=== PATIENT | female | born 1985 | race American Indian/Alaskan Native ===

== ENCOUNTER 2016-09-05 17:15 | Outpatient (CLI) | payer MEDICAID ==
[2016-09-05 18:52] VITALS: BP 135/81
[2016-09-05] MEDS ORDERED: LACTATED RINGERS 1,000 ML ONE (18:52)
[2016-09-05] MEDS ORDERED: LACTATED RINGERS 500 ML IV ONE (19:10)
[2016-09-05] MEDS ORDERED: ZOFRAN IV ONE (20:04)
[2016-09-05 20:35] LABS: Bilirubin,Urine NEG (Negative); Blood,Urine NEG (Negative); Ketones,Urine 20 mg/dL (Negative); Leukocyte Esterase,Urine NEG (Negative); Mucus,Urine 1+ /HPF; Nitrite,Urine NEG (Negative)
== END 2016-09-05 21:26 | disposition home or self-care (01) ==
LOC: TRG 17:15
PROVIDERS: ATTEND Obstetrics & Gynecology
DX: O47.03 False labor before 37 completed weeks of gestation, third trimester (principal); Z3A.33 33 weeks gestation of pregnancy
CPT/HCPCS: 59025; 81001; 96360; 96361; 96374; J2405; J7120

== ENCOUNTER 2018-01-11 22:17 | Outpatient (CLI) | payer MEDICAID ==
[2018-01-11] MEDS ORDERED: LACTATED RINGERS 1,000 ML ONE (22:35)
[2018-01-11] MEDS ORDERED: LACTATED RINGERS 1,000 ML IV ONE (23:21)
[2018-01-11] MEDS ORDERED: TYLENOL PO ONE (23:22)
[2018-01-12 00:59] LABS: Bilirubin,Urine NEG (Negative); Blood,Urine NEG (Negative); Calcium Oxalate Crystals,Urine 1+; Color,Urine Amber (Yellow); Hyaline Casts,Urine 1 /LPF; Mucus,Urine 3+ /HPF
[2018-01-12 01:10] VITALS: BP 110/50
== END 2018-01-12 01:32 | disposition home or self-care (01) ==
LOC: TRG 22:17
PROVIDERS: ATTEND Obstetrics & Gynecology
DX: O26.893 Other specified pregnancy related conditions, third trimester (principal); O99.333 Smoking (tobacco) complicating pregnancy, third trimester; M54.5 Low back pain; Z3A.33 33 weeks gestation of pregnancy; Z88.1 Allergy status to other antibiotic agents
CPT/HCPCS: 59025; 81001; 96360; J7120

== ENCOUNTER 2018-01-12 01:46 | Emergency (ER) | payer MEDICAID ==
[2018-01-12 02:07] VITALS: BP 115/58
== END 2018-01-12 02:40 | disposition left against medical advice (07) ==
LOC: ED 01:46
DX: O26.891 Other specified pregnancy related conditions, first trimester (principal); R22.0 Localized swelling, mass and lump, head; Z53.21 Procedure and treatment not carried out due to patient leaving prior to being seen by health care provider

== ENCOUNTER 2019-02-01 18:29 | Emergency (ER) | payer MEDICAID ==
--- NOTE | 2019-02-01 18:45 | Event Note ---
ED Screening Note ED Screening Note: edc 05/06 co 04/[address] Baker 142/83 borderline pre eclampsia in the past pt states she has been swelling this preg but bp ok rx pmh none psh none no head trauma no sinus symptom entire head hurts vision is blurred pos n/v This initial assessment/diagnostic orders/clinical plan/treatment(s) is/are subject to change based on patients health status, clinical progression and re- assessment by fellow clinical providers in the ED. Further treatment and workup at subsequent clinical providers discretion. Patient/guardian urged not to elope from the ED as their condition may be serious if not clinically assessed and managed. Initial orders include: concern for preeclampsia
[2019-02-01] MEDS ORDERED: REGLAN IV ONE (19:05)
[2019-02-01] MEDS ORDERED: NACL 0.9% 1000 ML 1,000 ML IV ONE ×2 (19:05)
[2019-02-01 19:19] LABS: Hematocrit 34.6 % (30.3-42.9); Hemoglobin 11.2 gm/dl (10.1-14.3); Mean Corpuscular HGB Conc 32 % (30-34); Mean Corpuscular Volume 86 fl (79-97); Platelet Count 386 K/mm3 (140-440); Red Blood Count 4.04 M/mm3 (3.65-5.03); Red Cell Distribution Width 14.5 % (13.2-15.2)
[2019-02-01 19:45] LABS: Alanine Aminotransferase 9 units/L (7-56); Albumin 3.4 g/dL (3.9-5); BUN/Creatinine Ratio 20; Blood Urea Nitrogen 8 mg/dL (7-17); Calcium 9.5 mg/dL (8.4-10.2); Hemolysis Index 33; Uric Acid 3.4 mg/dL (3.5-7.6)
[2019-02-01 20:31] LABS: Bacteria,Urine 2+ /HPF (Negative); Bilirubin,Urine NEG (Negative); Blood,Urine NEG (Negative); Color,Urine Yellow (Yellow); Mucus,Urine 1+ /HPF; Protein,Urine <15 mg/dL mg/dL (Negative)
--- NOTE | 2019-02-01 20:55 | Emergency Department Report ---
ED General Adult HPI - General Chief complaint: Headache Stated complaint: HEADAHCE/DIZZINESS/BLURRED VISION Time Seen by Provider: 02/01/19 18:42 Source: patient Mode of arrival: Ambulatory Limitations: No Limitations - History of Present Illness Initial comments: Patient is a 33-year-old female who is presenting with a headache has been present for the last 2 days. Patient states is 9 out of 10 in severity. Headache is throbbing and is accompanied with some dizziness which is worse with standing up. Patient also has some mild nausea. Patient states she's has been out in the heat and profusely sweating last several days. Neri nt states that she stood in front of a fan today but was still very diaphoretic. Patient states she has been drinking plenty of fluids. Patient is approximately 27 weeks . She denies any vaginal bleeding dysuria or diarrhea or abdominal crampiness at this time. Patient also states that she has a small lump at the top of the head that is mildly tender to palpation for the past 3 weeks. Patient states that she is very sure this is being off for 3 weeks tissue razor on hair daily and has never noticed a lump in this area. - Related Data Previous Rx's Medication Instructions Recorded Last Taken Type Acetaminophen [Acetaminophen TAB] 650 mg PO Q4H PRN #30 tablet 07/21/14 Unknown Rx Clindamycin [Cleocin] 300 mg PO Q8H #21 cap 07/21/14 Unknown Rx HYDROcodone/APAP 5-325 [Paia 1 each PO Q6H PRN #10 tablet 07/21/14 Unknown Rx 5-325 mg TAB] Clindamycin [Clindamycin CAP] 300 mg PO Q8H #21 cap 02/01/19 Unknown Rx Allergies Allergy/AdvReac Type Severity Reaction Status Date / Time amoxicillin Allergy Itching Verified 07/19/14 19:56 ED Review of Systems ROS: Stated complaint: HEADAHCE/DIZZINESS/BLURRED VISION Other details as noted in HPI Comment: All other systems reviewed and negative ED Past Medical Hx - Past Medical History Previous Medical History?: No Hx Hypertension: Yes (previous ) Hx Congestive Heart Failure: No Hx Diabetes: No Hx Deep Vein Thrombosis: No Hx Renal Disease: No Hx Sickle Cell Disease: No Hx Seizures: No Hx Asthma: No Hx COPD: No Hx HIV: No - Surgical History Past Surgical History?: No - Social History Smoking Status: Never Smoker Substance Use Type: None - Medications Home Medications: Home Medications Medication Instructions Recorded Confirmed Last Taken Type Acetaminophen [Acetaminophen TAB] 650 mg PO Q4H PRN #30 tablet 07/21/14 Unknown Rx Clindamycin [Cleocin] 300 mg PO Q8H #21 cap 07/21/14 Unknown Rx HYDROcodone/APAP 5-325 [Paia 1 each PO Q6H PRN #10 tablet 07/21/14 Unknown Rx 5-325 mg TAB] Clindamycin [Clindamycin CAP] 300 mg PO Q8H #21 cap 02/01/19 Unknown Rx ED Physical Exam - General Limitations: No Limitations General appearance: alert, in no apparent distress - Head Head exam: Present: atraumatic, normocephalic, other (shunt with a very small pea-sized nodule under the skin at the very top of the head. The overlying skin is not erythematous. There is no fluctuance. This is most consistent with a lymph node or a small cyst.) - Eye Eye exam: Present: normal appearance, PERRL, EOMI - ENT ENT exam: Present: mucous membranes moist - Neck Neck exam: Present: normal inspection - Respiratory Respiratory exam: Present: normal lung sounds bilaterally. Absent: respiratory distress, wheezes, rales, rhonchi - Cardiovascular Cardiovascular Exam: Present: regular rate, normal rhythm. Absent: systolic murmur, diastolic murmur, rubs, gallop - GI/Abdominal GI/Abdominal exam: Present: soft, normal bowel sounds. Absent: distended, tenderness, guarding, rebound - Extremities Exam Extremities exam: Present: normal inspection - Back Exam Back exam: Present: normal inspection - Neurological Exam Neurological exam: Present: alert, oriented X3 - Psychiatric Psychiatric exam: Present: normal affect, normal mood - Skin Skin exam: Present: warm, dry, intact, normal color. Absent: rash ED Course Vital Signs 02/01/19 02/01/19 18:41 18:44 Temperature 97.6 F Pulse Rate 90 Respiratory 18 Rate Blood Pressure 135/76 Blood Pressure 142/83 [Left] Blood Pressure 137/88 [Right] O2 Sat by Pulse 99 Oximetry ED Medical Decision Making - Lab Data Result diagrams: 02/01/19 19:07 02/01/19 19:07 Lab Results 02/01/19 02/01/19 02/01/19 Range/Units 19:07 19:07 20:04 WBC 13.8 H (4.5-11.0) K/mm3 RBC 4.04 (3.65-5.03) M/mm3 Hgb 11.2 (10.1-14.3) gm/dl Hct 34.6 (30.3-42.9) % MCV 86 (79-97) fl MCH 28 (28-32) pg MCHC 32 (30-34) % RDW 14.5 (13.2-15.2) % Plt Count 386 (140-440) K/mm3 Sodium 135 L (137-145) mmol/L Potassium 4.1 (3.6-5.0) mmol/L Chloride 102.2 (98-107) mmol/L Carbon Dioxide 19 L (22-30) mmol/L Anion Gap 18 mmol/L BUN 8 (7-17) mg/dL Creatinine 0.4 L (0.7-1.2) mg/dL Estimated GFR > 60 ml/min BUN/Creatinine Ratio 20 % Glucose 80 (65-100) mg/dL Uric Acid 3.4 L (3.5-7.6) mg/dL Calcium 9.5 (8.4-10.2) mg/dL Total Bilirubin 0.20 (0.1-1.2) mg/dL AST 13 (5-40) units/L ALT 9 (7-56) units/L Alkaline Phosphatase 85 (35-129) units/L Total Protein 7.4 (6.3-8.2) g/dL Albumin 3.4 L (3.9-5) g/dL Albumin/Globulin Ratio 0.9 % Urine Color Yellow (Yellow) Urine Turbidity Clear (Clear) Urine pH 6.0 (5.0-7.0) Ur Specific Fre[place] 1.020 (1.003-1.030) Urine Protein <15 mg/dl (Negative) mg/dL Urine Glucose (UA) Neg (Negative) mg/dL Urine Ketones 20 (Negative) mg/dL Urine Blood Neg (Negative) Urine Nitrite Neg (Negative) Urine Bilirubin Neg (Negative) Urine Urobilinogen 4.0 (<2.0) mg/dL Ur Leukocyte Esterase Tr (Negative) Urine WBC (Auto) 2.0 (0.0-6.0) /HPF Urine RBC (Auto) 1.0 (0.0-6.0) /HPF U Epithel Cells (Auto) 1.0 (0-13.0) /HPF Urine Bacteria (Auto) 2+ (Negative) /HPF Urine Mucus 1+ /HPF - Medical Decision Making Patient states she is most worried about preeclampsia since she has had preeclampsia with previous pregnancies. Hi his blood pressure in the emergency department was 142/83 however repeat was 135/76. Patient's urinalysis was evaluated and she has no proteins. Patient's has been ruled out for preeclampsia at this time. Patient was hydrated state she feels much improved. Headache is resolved. Patient's headache likely secondary to hypovolemia. Regarding the patient's small nodule on the top of her head this may be an infected lymph node. Patient started on clindamycin and will have follow-up with her primary care physician. Patient discharged home. Critical care attestation.: If time is entered above; I have spent that time in minutes in the direct care of this critically ill patient, excluding procedure time. ED Disposition Clinical Impression: Mild dehydration, Lymphadenitis Headache Qualifiers: Headache type: tension-type Headache chronicity pattern: acute headache Intractability: not intractable Qualified Code(s): G44.209 - Tension-type headache, unspecified, not intractable Disposition: DC-01 TO HOME OR SELFCARE Is pt being admited?: No Does the pt Need Aspirin: No Condition: Stable Instructions: (ED), Dehydration (ED), Lymphadenopathy (ED) Referrals: PRIMARY CARE, [Primary Care Provider] - 3-5 Days Time of Disposition: 20:56
[2019-02-01 21:20] VITALS: BP 136/84
== END 2019-02-01 21:15 | disposition home or self-care (01) ==
LOC: ED 18:29
DX: O26.892 Other specified pregnancy related conditions, second trimester (principal); E86.0 Dehydration; I88.9 Nonspecific lymphadenitis, unspecified; R51 Headache; O16.2 Unspecified maternal hypertension, second trimester; Z3A.27 27 weeks gestation of pregnancy; Z79.899 Other long term (current) drug therapy; Z88.1 Allergy status to other antibiotic agents
CPT/HCPCS: 36415; 80053; 81001; 84550; 85027; 96361; 96374; 99283; J2765; J7030

== ENCOUNTER 2019-04-11 22:51 | Emergency (ER) | payer MEDICAID ==
[2019-04-11 19:37] LABS: Bilirubin,Urine Negative (Negative); Blood,Urine Negative (Negative); Color,Urine Yellow (Yellow); Protein,Urine <15 mg/dL mg/dL (Negative); Urobilinogen,Urine < 2.0 mg/dL (<2.0)
[2019-04-11 19:38] LABS: Bacteria,Urine 1+ /HPF (Negative)
[2019-04-11 19:51] LABS: Mucus,Urine 1+ /HPF; Sperm,Urine FEW /HPF (NP)
[2019-04-11 19:52] LABS: Amphetamine Screen,Urine PRESUMPTIVE NEGATIVE; Benzodiazepines Screen,Urine PRESUMPTIVE NEGATIVE; Cocaine Screen,Urine PRESUMPTIVE NEGATIVE; Methadone Screen,Urine PRESUMPTIVE NEGATIVE; Opiate Screen,Urine PRESUMPTIVE NEGATIVE
--- NOTE | 2019-04-11 20:27 | Ultrasound Report ---
CLINICAL DATA: See reason for exam. TECHNICAL DATA: Document breath, motion, gestational age, tone, and fluid. FINDINGS: respiration, tone, and motion are well visualized and normal. Amniotic fluid volume is normal. Biophysical profile score is 8/8. The lower uterine segment is evaluated and there is no evidence of placenta previa. heart rate is Heart Rate 131. IMPRESSION: The biophysical profile score is 8/8. Signer Name: Artemio Bolton MD Signed: 04/11/2019 8:23 PM Workstation Name: [id number]
--- NOTE | 2019-04-11 20:30 | Ultrasound Report ---
ULTRASOUND OBSTETRIC INDICATION / CLINICAL INFORMATION: S/P fall. Clinical Gestational Age (GA): TECHNIQUE: Transabdominal. COMPARISON: None available. FINDINGS: There is a single intrauterine . Position: breech. Cervix: closed. Length in cm (3.8 cm Placenta: Fundal and free of the os. Amniotic Fluid Volume: normal Amniotic Fluid Index (10.9 in cm (if calculated): . Maternal Adnexa: No significant abnormality. IMPRESSION: 1. Single, living intrauterine , breech presentation Signer Name: Artemio Bolton MD Signed: 04/11/2019 8:26 PM Workstation Name: [id number]
[2019-04-11 20:55] LABS: Cannabinoid Screen,Urine PRESUMPTIVE POSITIVE
[2019-04-11 22:09] LABS: Hematocrit 32.8 % (30.3-42.9); Hemoglobin 10.7 gm/dl (10.1-14.3); Mean Corpuscular HGB Conc 33 % (30-34); Mean Corpuscular Volume 86 fl (79-97); Platelet Count 344 K/mm3 (140-440); Red Blood Count 3.83 M/mm3 (3.65-5.03); Red Cell Distribution Width 14.4 % (13.2-15.2)
[~2019-04-11 22:51] MED LIST: ACETAMINOPHEN 325 MG TAB PO ONE; LACTATED RINGERS 1,000 ML IV SCH
[2019-04-11 23:29] VITALS: BP 112/72
[2019-04-11] MEDS ORDERED: ONDANSETRON 4 MG/2 ML INJ IM ONE (23:42)
[2019-04-11] MEDS ORDERED: MORPHINE 4 MG/1 ML INJ IM ONE (23:42)
--- NOTE | 2019-04-11 23:47 | Emergency Department Report ---
ED Fall HPI - General Chief Complaint: Back Pain/Injury Time Seen by Provider: 04/11/19 23:31 Source: patient Mode of arrival: Ambulatory - History of Present Illness Initial Comments: Patient is 34 years old female at 36 weeks . Patient brought to the emergency room from labor and delivery for evaluation after a fall that happened this evening. Patient stated that she was getting out of BATHTUB when she slipped and fell landed on her back. Patient stated that she is complaining of lower back pain and left hip pain. Patient denied any head injury, loss of consciousness, headache, neck injury or any other extremity injuries. Patient has been cleared by labor and delivery after adequate monitoring. MD Complaint: fall -: This evening Fall From: standing Fall Witnessed: yes, by family Place Fall Occurred: home Loss of Consciousness: none Prolonged Down Time?: no Symptoms Prior to Fall: none Location: back, pelvis Severity: moderate Severity scale (0 -10): 5 Context: tripped/slipped Associated Symptoms: denies - Related Data Previous Rx's Medication Instructions Recorded Last Taken Type Acetaminophen [Acetaminophen TAB] 650 mg PO Q4H PRN #30 tablet 07/21/14 Unknown Rx Clindamycin [Cleocin] 300 mg PO Q8H #21 cap 07/21/14 Unknown Rx HYDROcodone/APAP 5-325 [Barnwell 1 each PO Q6H PRN #10 tablet 07/21/14 Unknown Rx 5-325 mg TAB] Clindamycin [Clindamycin CAP] 300 mg PO Q8H #21 cap 02/01/19 Unknown Rx Allergies Allergy/AdvReac Type Severity Reaction Status Date / Time amoxicillin AdvReac Severe Itching Verified 04/11/19 18:51 ED Review of Systems ROS: Stated complaint: Other details as noted in HPI Comment: All other systems reviewed and negative Constitutional: denies: chills, fever Respiratory: denies: cough, shortness of breath Cardiovascular: denies: chest pain Gastrointestinal: denies: abdominal pain, nausea Musculoskeletal: back pain Neurological: denies: headache, weakness, numbness, paresthesias, confusion ED Past Medical Hx - Past Medical History Previous Medical History?: No Hx Hypertension: No Hx Congestive Heart Failure: No Hx Diabetes: No Hx Deep Vein Thrombosis: No Hx Renal Disease: No Hx Sickle Cell Disease: No Hx Seizures: No Hx Asthma: No Hx COPD: No Hx HIV: No - Surgical History Past Surgical History?: No - Social History Smoking Status: Never Smoker Substance Use Type: None - Medications Home Medications: Home Medications Medication Instructions Recorded Confirmed Last Taken Type Acetaminophen [Acetaminophen TAB] 650 mg PO Q4H PRN #30 tablet 07/21/14 Unknown Rx Clindamycin [Cleocin] 300 mg PO Q8H #21 cap 07/21/14 Unknown Rx HYDROcodone/APAP 5-325 [Barnwell 1 each PO Q6H PRN #10 tablet 07/21/14 Unknown Rx 5-325 mg TAB] Clindamycin [Clindamycin CAP] 300 mg PO Q8H #21 cap 02/01/19 Unknown Rx ED Physical Exam - General Limitations: No Limitations General appearance: alert, in no apparent distress - Head Head exam: Present: atraumatic, normocephalic, normal inspection - Eye Eye exam: Present: normal appearance - ENT ENT exam: Present: normal exam, normal orophraynx, mucous membranes moist - Neck Neck exam: Present: normal inspection, full ROM. Absent: tenderness, meningismus, lymphadenopathy, thyromegaly - Respiratory Respiratory exam: Present: normal lung sounds bilaterally - Cardiovascular Cardiovascular Exam: Present: regular rate, normal rhythm, normal heart sounds - GI/Abdominal GI/Abdominal exam: Present: soft, normal bowel sounds, organomegaly (GRAVID UTERUS). Absent: distended, tenderness, guarding, rebound, rigid, mass, bruit, pulsatile mass, hernia - Extremities Exam Extremities exam: Present: normal inspection, full ROM, normal capillary refill. Absent: tenderness, pedal edema, joint swelling, calf tenderness - Back Exam Back exam: Present: normal inspection, full ROM, muscle spasm. Absent: CVA tenderness (R), CVA tenderness (L), paraspinal tenderness, vertebral tenderness, rash noted - Neurological Exam Neurological exam: Present: alert, oriented X3, CN II-XII intact, normal gait, reflexes normal - Psychiatric Psychiatric exam: Present: normal mood - Skin Skin exam: Present: warm, intact, normal color ED Course Vital Signs 04/11/19 04/11/19 04/11/19 18:54 18:55 23:22 Temperature 97.5 F L 97.9 F Pulse Rate 93 H 93 H 95 H Respiratory 20 18 Rate Blood Pressure 129/81 112/72 Blood Pressure 129/81 [Left] O2 Sat by Pulse 100 97 Oximetry ED Medical Decision Making - Lab Data Result diagrams: 04/11/19 19:38 - Radiology Data Radiology results: image reviewed - Medical Decision Making Patient is 34 years old female at 36 weeks . Patient brought to the emergency room from labor and delivery for evaluation after a fall that happened this evening. Patient stated that she was getting out of BATHTUB when she slipped and fell landed on her back. Patient stated that she is complaining of lower back pain and left hip pain. Patient denied any head injury, loss of consciousness, headache, neck injury or any other extremity injuries. Patient has been cleared by labor and delivery after adequate monitoring. Patient received morphine and stated that she is feeling better. X-ray of the lumbosacral spine is negative for acute finding. Left hip x-ray is unremarkable. Patient still denying any vaginal bleeding or abdominal pain. Patient advised to follow-up with her OB doctor in the next 2-3 days and to attend to the ER if symptoms are not improved. Patient given a prescription for Tylenol 3 and Zofran. Critical care attestation.: If time is entered above; I have spent that time in minutes in the direct care of this critically ill patient, excluding procedure time. ED Disposition Clinical Impression: Back pain Disposition: DC-01 TO HOME OR SELFCARE Is pt being admited?: No Condition: Stable Instructions: Acute Low Back Pain (ED) Referrals: IRENA MELTON MD [Primary Care Provider] - 7 Days
[2019-04-11] MEDS ORDERED: MORPHINE 4 MG/1 ML INJ ONE (23:57)
[2019-04-11] MEDS ORDERED: ONDANSETRON 4 MG/2 ML INJ ONE (23:57)
--- NOTE | 2019-04-12 02:50 | XRay Report ---
LEFT HIP 2 VIEWS 0026 INDICATION: LEFT HIP PAIN, fell, left hip injury, prior history of sciatica and low back/left hip emmanuel n, 36 weeks COMPARISON: None available. FINDINGS: The patient's abdomen and upper pelvis were shielded. No fractures or dislocations are seen . Signer Name: Neal Peter MD Signed: 04/12/2019 2:46 AM Workstation Name: [id number]
--- NOTE | 2019-04-12 02:51 | XRay Report ---
LUMBAR SPINE ONE VIEW 0015 INDICATION: BACK INJURY, fall, 36 weeks COMPARISON: None available. FINDINGS: Only a single lateral view was obtained due to the patient's . Fetus is partially visualized. Minimal degenerative changes are seen in the lower thoracic and upper lumbar region. Disc spaces are maintained. No fractures or subluxations are noted. Signer Name: Neal Peter MD Signed: 04/12/2019 2:47 AM Workstation Name: [id number]
== END 2019-04-12 01:02 | disposition home or self-care (01) ==
LOC: TRG 22:51 → ED 22:51 → TRG 22:51 → ED 22:51 → EDSTATUS 22:55 → ED 04-12 01:02
DX: O9A.213 Injury, poisoning and certain other consequences of external causes complicating pregnancy, third trimester (principal); M54.5 Low back pain; M25.552 Pain in left hip; Z3A.36 36 weeks gestation of pregnancy; W18.30XA Fall on same level, unspecified, initial encounter; Y93.89 Activity, other specified; Y92.89 Other specified places as the place of occurrence of the external cause; Y99.8 Other external cause status
CPT/HCPCS: 36415; 59025; 72020; 73502; 76815; 76819; 80307; 81001; 85027; 86850; 86900; 86901; 96372; 99284; J2270; J2405

== ENCOUNTER 2019-04-25 20:04 | Inpatient (IN) | payer MEDICAID ==
[2019-04-25] MEDS ORDERED: ZOLPIDEM 5 MG TAB PO PRN (23:26)
[2019-04-25] MEDS ORDERED: LACTATED RINGERS 1,000 ML IV SCH (23:45)
--- NOTE | 2019-04-26 00:57 | Ultrasound Report ---
ULTRASOUND OBSTETRIC LIMITED INDICATION / CLINICAL INFORMATION: PRESENTATION. TECHNIQUE: Transabdominal ultrasound imaging. COMPARISON: 04/11/2019 FINDINGS: HEART RATE (beats per minute): 130 AMNIOTIC FLUID INDEX (cm) = not measured PRESENTATION: Breech. ADDITIONAL FINDINGS: None. IMPRESSION: Single viable IUP in a breech presentation. Signer Name: Ariadna Osman MD Signed: 04/26/2019 12:52 AM Workstation Name: [email or web address]
[2019-04-26] MEDS ORDERED: BUTORPHANOL 2 MG/1 ML INJ IV PRN (08:45)
[2019-04-26] MEDS ORDERED: ONDANSETRON 4 MG/2 ML INJ IV PRN ×3 (08:46→13:45)
[2019-04-26] MEDS ORDERED: LACTATED RINGERS 1,000 ML IV SCH ×2 (09:00→10:00)
--- NOTE | 2019-04-26 09:07 | History and Physical Report ---
History of Present Illness Date of examination: 04/26/19 Date of admission: 04/25/19 23:25 Chief complaint: Contractions History of present illness: PT is a at 38.4 weeks based on an EDC given to her at a mobile U/S unit in the first trimester. PT only had care in the first trimester and none since due to insurance issues. PT here with ctxs since last night. Denies ROM. No VB. Good FM. U/S overnight confirmed that fetus is breech. PT notes that she signed sterilization papers early in the (still trying to obtain records). PT has taken PNVs. PT denies any other issues during the . PT notes h/o HTN but no meds needed. Past History Past Medical History: hypertension Past Surgical History: no surgical history Social history: other (only first trimester care due to insurance issues.) - Obstetrical History Expected Date of Delivery: 05/06/19 Actual Gestation: 38 Week(s) 4 Day(s) : 6 Para: 5 Hx # Term Pregnancies: 5 Number of Living Children: 5 Medications and Allergies Allergies Allergy/AdvReac Type Severity Reaction Status Date / Time amoxicillin AdvReac Severe Itching Verified 04/11/19 18:51 Home Medications Medication Instructions Recorded Confirmed Last Taken Type Acetaminophen [Acetaminophen TAB] 650 mg PO Q4H PRN #30 tablet 07/21/14 04/26/19 Unknown Rx HYDROcodone/APAP 5-325 [Roann 1 each PO Q6H PRN #10 tablet 07/21/14 04/26/19 Unknown Rx 5-325 mg TAB] Acetaminophen/Codeine [Tylenol 1 tab PO Q6H PRN #14 tab 04/12/19 04/26/19 Unk nown Rx /Codeine # 3 tab] Ondansetron [Zofran Odt] 4 mg PO Q8HR PRN #14 tab.rapdis 04/12/19 04/26/19 Unknown Rx Active Meds: Active Medications Butorphanol Tartrate (Stadol) 2 mg IV Q2H PRN PRN Reason: Labor Pain Last Admin: 04/26/19 08:59 Dose: 2 mg Documented by: Lactated Ringer's (Lactated Ringers) 1,000 mls @ 125 mls/hr IV DIRECT DEBBY Clindamycin HCl (Cleocin 900 Mg/50 Ml) 900 mg in 50 mls @ 100 mls/hr IV Q8H DEBBY; Protocol Ondansetron HCl (Zofran) 4 mg IV Q8H PRN PRN Reason: Nausea And Vomiting Last Admin: 04/26/19 08:59 Dose: 4 mg Documented by: Zolpidem Tartrate (Ambien) 10 mg PO QHS PRN PRN Reason: Sleep Last Admin: 04/26/19 00:19 Dose: 10 mg Documented by: Review of Systems All systems: negative (WNL excepet for HPI) - Vital Signs Vital signs: Vital Signs Temp 97.5 F L 04/25/19 20:57 Temp Pulse Resp BP Pulse Ox 97.9 F 89 19 125/75 04/26/19 00:03 04/26/19 07:52 04/26/19 00:03 04/26/19 07:52 - Physical Exam Breasts: Positive: deferred Abdomen: Positive: normal appearance (Fundal height 38cm), soft. Negative: distention, tenderness Vulva: both: normal Vagina: Positive: normal moisture. Negative: discharge Uterus: Positive: normal size Adnexa: both: normal - Obstetrical FHR: category 1 (130s, reactive, mod LTV, no decels.) Cervical Dilatation: 5 Cervical Effacement Percentage: 80 station: hi Uterine Contraction Frequency (min): q 2-3 min Uterine Contraction Pattern: Regular Uterine Contraction Intensity: Moderate Results All other labs normal. Ultrasound: pending (awaiting dating U/S to confirm her dates that she verbally gave us. ) Assessment and Plan at 38.4 weeks breech and in early labor. PT consented for LTCS. Risks, benefits and alternatives d/w pt. All questions answered. Will see if sterilization papers were signed in the appropriate window of time. IF so, she was consented for that as well. If not, pt agrees to get it done another time.
[2019-04-26 09:31] LABS: Basophils # (Auto) 0.1 K/mm3 (0.0-0.1); Basophils % (Auto) 1.2 % (0.0-1.8); Eosinophils # (Auto) 0.1 K/mm3 (0.0-0.4); Eosinophils % (Auto) 0.4 % (0.0-4.3); Hematocrit 31.1 % (30.3-42.9); Hemoglobin 10.5 gm/dl (10.1-14.3); Lymphocytes # (Auto) 3.4 K/mm3 (1.2-5.4); Lymphocytes % (Auto) 27.6 % (13.4-35.0); Mean Corpuscular HGB Conc 34 % (30-34); Mean Corpuscular Volume 84 fl (79-97); Monocytes % (Auto) 8.2 % (0.0-7.3); Platelet Count 313 K/mm3 (140-440); Red Blood Count 3.73 M/mm3 (3.65-5.03); Red Cell Distribution Width 14.1 % (13.2-15.2)
[2019-04-26] MEDS ORDERED: OXYTOCIN 20 UNIT/1000ML DRIP 20,000 MILLIUNITS/1,000 ML BAG IV ONE ×2 (09:32→17:31)
[2019-04-26] MEDS ORDERED: METOCLOPRAMIDE 10 MG/2 ML INJ ONE (09:33)
[2019-04-26] MEDS ORDERED: BICITRA ORAL LIQD 30ML ONE (09:33)
[2019-04-26] MEDS ORDERED: FAMOTIDINE 20 MG/2 ML INJ IV ONE (09:33)
[2019-04-26] MEDS ORDERED: BICITRA ORAL LIQD 30ML PO ONE (10:00)
[2019-04-26] MEDS ORDERED: FAMOTIDINE 20 MG/2 ML INJ IV NR (10:00)
[2019-04-26] MEDS ORDERED: METOCLOPRAMIDE 10 MG/2 ML INJ IV NR (10:00)
[2019-04-26 10:28] LABS: Bacteria,Urine 1+ /HPF (Negative); Bilirubin,Urine NEG (Negative); Blood,Urine NEG (Negative); Color,Urine Yellow (Yellow); Mucus,Urine 2+ /HPF; Protein,Urine <15 mg/dL mg/dL (Negative)
[2019-04-26] MEDS ORDERED: GENTAMICIN 500 MG in SODIUM CHLORIDE 0.9% 100 ML IV NR (10:30)
[2019-04-26 10:32] LABS: Amphetamine Screen,Urine PRESUMPTIVE NEGATIVE; Benzodiazepines Screen,Urine PRESUMPTIVE NEGATIVE; Cocaine Screen,Urine PRESUMPTIVE NEGATIVE; Methadone Screen,Urine PRESUMPTIVE NEGATIVE; Opiate Screen,Urine PRESUMPTIVE NEGATIVE
[2019-04-26 10:46] LABS: Cannabinoid Screen,Urine PRESUMPTIVE POSITIVE
--- NOTE | 2019-04-26 11:44 | Anesthesia Consultation ---
Anesthesia Consult and Med Hx Date of service: 04/26/19 - Airway Anesthetic Teeth Evaluation: Good ROM Head & Neck: Adequate Mental/Hyoid Distance: Adequate Mallampati Class: Class II Intubation Access Assessment: Good - Pulmonary Exam CTA: Yes - Cardiac Exam Cardiac Exam: RRR - Pre-Operative Health Status ASA Pre-Surgery Classification: ASA2 Proposed Anesthetic Plan: Spinal - Pulmonary Hx Asthma: No COPD: No Hx Pneumonia: No - Cardiovascular System Hx Hypertension: Yes - Central Nervous System Hx Seizures: No Hx Psychiatric Problems: No - Endocrine Hx Renal Disease: No Hx End Stage Renal Disease: No Hx Hypothyroidism: No Hx Hyperthyroidism: No - Hematic Hx Anemia: Yes Hx Sickle Cell Disease: No - Other Systems Hx Alcohol Use: Yes Hx Cancer: No
[2019-04-26] MEDS ORDERED: PROMETHAZINE 25 MG RECT SUPP PR PRN (11:45)
[2019-04-26] MEDS ORDERED: NALOXONE 0.4 MG/1 ML INJ IV PRN ×3 (11:45→21:09)
[2019-04-26] MEDS ORDERED: HYDROmorphone 1 MG/1 ML INJ IV PRN ×2 (11:45)
[2019-04-26] MEDS ORDERED: PROMETHAZINE 25 MG TAB PO PRN (11:45)
--- NOTE | 2019-04-26 11:57 | Ultrasound Report ---
ULTRASOUND OBSTETRIC Indication: no care Findings: There is a single intrauterine . BPD = 9 cm = 36 weeks, 4 day(s). Head circumference = 33.6 cm = 38 weeks, 3 day(s). Abdominal circumference = 34.2 cm = 38 weeks, 0 day(s). Femur length = 7.6 cm = 38 weeks, 5 day(s). Overall estimated sonographic age = 38 weeks, 0 day(s). heart rate is 138 beats per minute. Estimated weight is 3391 grams position is breech. Cervix is not well visualized Placenta is fundal and grade 2 . Amniotic fluid volume 7 which is at the lower end of normal. The cord insertion is not well seen. The intracranial structures are not well evaluated. The fe ronaldo stomach, kidneys, bladder, diaphragm, four-chamber view of the heart are unremarkable. Three-vess el cord is identified. Impression: 1. Single living intrauterine with estimated sonographic age of 38 weeks, 0 day(s). 2. The fetus is in a breech presentation. Amniotic fluid index is 7 which is at the lower end of norm al. Cord insertion and intracranial structures are not well evaluated. Signer Name: Chris Webber MD Signed: 04/26/2019 11:52 AM Workstation Name: [id number]
[2019-04-26] MEDS ORDERED: fentaNYL-BUPIV 2 MCG/ML-0.125% 200 MCG/100 ML BAG EPIDURAL SCH (12:00)
--- NOTE | 2019-04-26 12:07 | Anesthesia Day of Surgery ---
Anesthesia Day of Surgery - Day of Surgery Patient Examined: Yes Patient H&P Reviewed: Yes Patient is NPO: Yes
[2019-04-26] MEDS ORDERED: WATER FOR IRRIG STERILE 1,500 ML BOTTLE IR ONE (12:30)
[2019-04-26] MEDS ORDERED: SODIUM CHLORIDE 0.9% IRR 1,500 ML BOTTLE IR ONE (12:32)
[2019-04-26] MEDS ORDERED: diphenhydrAMINE 50 MG/ML VIAL ONE ×2 (12:55→13:34)
[2019-04-26] MEDS ORDERED: KETOROLAC 30 MG/1 ML INJ ONE (12:55)
[2019-04-26] MEDS ORDERED: ONDANSETRON 4 MG/2 ML INJ ONE (13:30)
[2019-04-26] MEDS ORDERED: HYDROmorphone 1 MG/1 ML INJ ONE (13:33)
[2019-04-26] MEDS ORDERED: DEXMEDETOMIDINE 200 MCG/2 ML VIAL IV ONE (13:34)
[2019-04-26] MEDS ORDERED: LANOLIN/ZINC/DIMETHICONE (LANSINOH) 7 GM TP PRN (13:41)
[2019-04-26] MEDS ORDERED: WITCH HAZEL/ GLYCERIN PAD TP PRN (13:41)
[2019-04-26] MEDS ORDERED: SIMETHICONE 80 MG CHEW TAB PO PRN (13:45)
[2019-04-26] MEDS ORDERED: MAGNESIUM HYDROXIDE (MOM) ORAL LIQD UDC PO PRN (13:45)
[2019-04-26] MEDS ORDERED: HYDROCORTISONE 25 MG RECTAL SUPP PR PRN (13:45)
[2019-04-26] MEDS ORDERED: SENNOSIDES 8.6 MG TAB PO PRN (13:45)
[2019-04-26] MEDS ORDERED: OXYTOCIN 20 UNIT/1000ML DRIP 20 UNITS/1,000 ML BAG IV SCH (14:00)
[2019-04-26] MEDS ORDERED: D5W/LACTATED RINGERS 1,000 ML IV SCH (14:00)
[2019-04-26] MEDS: KETOROLAC 30 MG/1 ML INJ IV PRN ×2 (16:51→23:00)
[2019-04-26] MEDS ORDERED: miSOPROStol 100 MCG TAB ONE ×3 (17:38→18:06)
[2019-04-26] MEDS ORDERED: miSOPROStol 200 MCG TAB VG ONE (17:44)
[2019-04-26] MEDS ORDERED: miSOPROStol 200 MCG TAB PR ONE (17:44)
--- NOTE | 2019-04-26 18:36 | Event Note ---
Date: 04/26/19 Nurse called to report vaginal bleeding with clots. Examined patient and uterus was found to be atonic. Fundal massage given. Pitocin IV being given. Cytotec 800 mcg per rectum. H/H ordered. Fundus now firm and midline and lochia is small in amount.
--- NOTE | 2019-04-26 19:33 | Procedure Note ---
OB Delivery Note - Section Preop diagnosis: breech Postop diagnosis: same section procedure: primary low transverse Disposition: PACU Complications: none Narrative: This patient is a 34-year-old 005 at 38 weeks and 4 days who presented in early labor. Patient was 5 cm dilated with contractions and was found to be in breech presentation. Bedside ultrasound was done to confirm her dating. Patient had minimal care. Patient had care in the first trimester. Patient was given a due date of 1125 at that time per patient. As a result of her being in early labor with malpresentation patient consented for a primary low transverse . We did not have any signed sterilization papers from the patient which she claims she signed but she also claims that she signed them back in August which would be outside of the accepted timeframe. Procedure patient was taken to the operating room and prepped and draped in the usual fashion. Pfannenstiel skin incision was made and carried down to the underlying fascia. Fascia was incised and incision extended bilaterally. Rectus fascia was then dissected off the rectus muscle both superiorly and inferiorly. Peritoneum identified and then tented up and entered. Peritoneal incision extended superiorly and inferiorly with good visualization of the bladder. Uterine incision was then made after the bladder blade was placed and the incision was extended bilaterally. Amniotic membrane was ruptured for clear fluid. The baby was zehra breech with the sacrum to the maternal left. B derick was delivered in the typical breech fashion and was done so successfully entered without difficulty. Baby was bulb suctioned at the incision site. Delayed cord clamping was done. Cord was then clamped and cut and handed off to the waiting team. Uterine incision was then closed with 0 Vicryl in a running locked fashion followed by a second imbricating layer of 0 Vicryl. A few additional [id number] stitches were required to control the oozing but that was done so successfully and without difficulty. Uterus tubes and ovaries which were exteriorized to do the uterine repair were then returned back to the abdominal cavity. The uterus tubes and ovaries were within normal limits. The pelvis was also well irrigated. The uterus is also cleared of all clots and debris spry to its closure. After the pelvis was irrigated, Interceed was placed over the uterine incision and over the lower uterine segment in the midline. Attention was then turned to the rectus fascia which was reapproximated with 0 Vicryl in a running fashion. Subcutaneous tissues were irrigated and reapproximated 2-0 Vicryl in a running fashion. Skin was closed with 4-0 Vicryl in a subcuticular fashion followed by Dermabond. Patient tolerated the procedure well. All instrument and lap counts correct. Patient taken recovery room in stable condition. Past medical and skin 100 mL Findings normal uterus tubes and ovaries - Infant A at 1 minute: 8 at 5 minutes: 9 Infant Gender: Female
[2019-04-26] MEDS: HYDROcodone/ACETAMINOPHEN 5-325 MG TAB PO PRN (20:02)
[2019-04-26 21:29] LABS: Hematocrit 23.4 % (30.3-42.9); Hemoglobin 7.6 gm/dl (10.1-14.3)
[2019-04-26] MEDS ORDERED: MORPHINE/NS 30 MG-30 ML PCA INJ IV SCH (22:00)
[2019-04-26] MEDS ORDERED: SODIUM CHLORIDE 0.9% 1000 ML 1,000 ML IV SCH (22:00)
[2019-04-27 09:36] LABS: Hematocrit 22.3 % (30.3-42.9); Hemoglobin 7.3 gm/dl (10.1-14.3)
[2019-04-27] MEDS: HYDROcodone/ACETAMINOPHEN 5-325 MG TAB PO PRN ×3 (09:43→23:54)
[2019-04-27] MEDS: FERROUS SULFATE 325 MG TAB PO SCH (09:59)
[2019-04-27] MEDS: KETOROLAC 30 MG/1 ML INJ IV PRN (10:00)
--- NOTE | 2019-04-27 10:21 | Progress Note ---
Assessment and Plan A: /postop day 1 S/P primary low transverse section. Anemia secondary to blood loss. P: Iron supplementation. Encouraged patient to ambulate. Subjective - Subjective Date of service: 04/27/19 Principal diagnosis: /postop day 1 S/P primary LTCS Interval history: /postop day 1 S/P primary low transverse section. Doing well. Patient reports small amount of lochia now. Voiding without difficulty. Ambulating well. Passing gas. Tolerating a regular diet without nausea or vomiting. Patient denies headache, dizziness, shortness of breath, chest pain, leg pain, heavy bleeding, nausea or vomiting. Hemoglobin 7.3; hematocrit 22.3 this morning; patient is not symptomatic and states she does not want to receive blood. She agrees to take her iron supplements now and when she goes home. Patient reports: appetite normal, voiding normally, pain well controlled, flatus, ambulating normally, no dizzy ambulation, no bowel movement, no nauseated : doing well Objective - Vital Signs Latest vital signs: Vital Signs Temp Pulse Resp BP BP Pulse Ox 04/27/19 08:26 98.5 F 91 H 20 126/62 99 04/27/19 01:09 98.3 F 78 20 132/64 98 04/26/19 20:35 98.2 F 75 20 130/76 97 04/26/19 17:25 97.4 F L 71 18 136/60 99 04/26/19 16:05 97.5 F L 66 18 125/79 100 04/26/19 14:45 62 16 130/68 97 04/26/19 14:30 68 14 132/68 97 04/26/19 14:15 68 14 120/68 97 04/26/19 14:05 65 15 122/62 98 04/26/19 14:00 62 12 118/58 100 04/26/19 13:55 97.4 F L 68 12 114/52 100 Intake and Output 04/26/19 04/27/19 04/27/19 23:59 07:59 15:59 Intake Total 50 Balance 50 Intake: IV 50 CLEOCIN 900 MG/50 mL 900 50 mg In 50 ml @ 100 mls/hr IV Q8H [facility] Rx#:[id number] Oral 0 Other: Total, Intake Amount 0 - Exam Cardiovascular: Present: Regular rate, Normal S1, Normal S2, No murmurs Lungs: Present: Clear to auscultation Abdomen: Present: normal appearance, soft, normal bowel sounds. Absent: distention, tenderness, guarding, rigidity Uterus: Present: normal, firm, fundal height below umbilicus. Absent: bogginess, tenderness Extremities: Present: normal. Absent: tenderness, edema Incision: Present: normal, dry, intact, dressed - Labs Labs: Abnormal lab results 04/26/19 04/27/19 Range/Units 20:08 08:40 Hgb 7.6 L 7.3 L (10.1-14.3) gm/dl Hct 23.4 L D 22.3 L (30.3-42.9) %
[2019-04-27] MEDS: IBUPROFEN 800 MG TAB PO PRN ×2 (14:06→20:24)
[2019-04-27] MEDS ORDERED: HYDROcodone/ACETAMINOPHEN 5-325 MG TAB PO PRN (14:08)
[2019-04-28] MEDS: IBUPROFEN 800 MG TAB PO PRN ×2 (05:15→20:28)
[2019-04-28] MEDS: FERROUS SULFATE 325 MG TAB PO SCH (08:58)
[2019-04-28] MEDS: HYDROcodone/ACETAMINOPHEN 5-325 MG TAB PO PRN ×3 (08:58→23:53)
--- NOTE | 2019-04-28 11:16 | Progress Note ---
Assessment and Plan A: /postop day 2 S/P primary low transverse section. Anemia secondary to blood loss. P: Continue iron supplementation. Continue ambulation. Subjective - Subjective Date of service: 04/28/19 Principal diagnosis: /postop day 2 S/P primary LTCS Interval history: /postop day 2 S/P primary low transverse section. Doing well. Patient reports scant amount of lochia. Voiding without difficulty. Ambulating well. Passing gas. Tolerating a regular diet without nausea or vomiting. Patient denies cough, dizziness, shortness of breath, chest pain, leg pain, heavy bleeding, nausea or vomiting. Taking iron supplements for anemia. Patient reports: appetite normal, voiding normally, pain well controlled, flatus, ambulating normally, no dizzy ambulation, no nauseated : doing well Objective - Vital Signs Latest vital signs: Vital Signs Temp Pulse Resp BP Pulse Ox 04/28/19 08:09 98.0 F 70 20 124/64 98 04/28/19 06:15 18 04/28/19 05:15 18 04/28/19 00:54 18 04/27/19 23:54 18 04/27/19 23:09 98.2 F 77 20 122/76 99 04/27/19 21:24 18 04/27/19 20:24 18 04/27/19 16:26 98.2 F 76 20 129/67 100 04/27/19 12:01 97.9 F 82 16 113/59 96 Intake and Output 04/27/19 04/28/19 04/28/19 23:59 07:59 15:59 Intake Total 480 240 120 Output Total 350 Balance 130 240 120 Intake: Oral 480 120 120 Intake, Free Water 120 Output: Urine 350 Void 350 Other: Total, Intake Amount 240 120 120 Total, Output Amount 350 # Voids Void 1 1 1 - Exam Cardiovascular: Present: Regular rate, Normal S1, Normal S2, No murmurs Lungs: Present: Clear to auscultation Abdomen: Present: normal appearance, soft, normal bowel sounds. Absent: distention, tenderness, guarding, rigidity Uterus: Present: normal, firm, fundal height below umbilicus. Absent: bogginess, tenderness Extremities: Present: normal. Absent: tenderness, edema Incision: Present: normal, dry, intact, dressed
[2019-04-29] MEDS: IBUPROFEN 800 MG TAB PO PRN ×2 (05:42→14:48)
[2019-04-29] MEDS: FERROUS SULFATE 325 MG TAB PO SCH ×2 (09:42→21:19)
[2019-04-29] MEDS: HYDROcodone/ACETAMINOPHEN 5-325 MG TAB PO PRN (09:42)
--- NOTE | 2019-04-29 10:59 | Progress Note ---
Assessment and Plan - Patient Problems (1) S/P primary low transverse Current Visit: Yes Status: Acute Plan to address problem: POD 3 - unstable Continue routine postop orders Ambulation encouraged, as tolerated Anticipate discharge in 24 hours (2) Anemia due to blood loss, acute Current Visit: Yes Status: Acute Plan to address problem: Symptomatic - lightheadedness, headache Vital signs stable On Ferrous sulfate 325mg PO qd. Increased to ferrous sulfate 325mg PO BID Infed 100mg IM x1 ordered. RN notified Repeat H&H on 04/30/19 (3) Uncontrolled pain Current Visit: Yes Status: Acute Plan to address problem: Reklaw 2 tabs PO q6hr prn discontinued and patient started on Percocet 2 tabs PO q6hr prn Subjective - Subjective Date of service: 04/29/19 Principal diagnosis: POD 3; s/p Primary LTCS; Symptomatic Anemia Interval history: see H&P, Event Note, OB Delivery Procedure Note and PP/[employer] Progress Note Patient reports: appetite normal, voiding normally, flatus, pain poorly controlled, ambulating normally, other (lightheadedness, headache), no bowel movement : doing well, bottle feeding Objective - Vital Signs Latest vital signs: Vital Signs Temp Pulse Resp BP BP Pulse Ox 04/29/19 08:40 98.2 F 72 20 117/57 04/29/19 00:42 98.1 F 72 18 122/68 98 04/28/19 16:04 98.2 F 80 16 129/78 100 Intake and Output 04/28/19 04/29/19 04/29/19 23:59 07:59 15:59 Intake Total 240 360 120 Balance 240 360 120 Intake: Oral 240 120 Intake, Free Water 360 Other: Total, Intake Amount 240 120 # Voids Void 1 2 1 - Exam Abdomen: Present: normal appearance, soft Vulva: both: normal Uterus: Present: normal, firm, fundal height below umbilicus Extremities: Present: normal Incision: Present: normal, dry, intact Comments: scant lochia
[2019-04-29] MEDS ORDERED: IRON DEXTRAN COMPLEX 100 MG/2 ML INJ IM NR (12:00)
[2019-04-29] MEDS: oxyCODONE /ACETAMINOPHEN 5-325MG TAB PO PRN (18:36)
[2019-04-30] MEDS: oxyCODONE /ACETAMINOPHEN 5-325MG TAB PO PRN ×3 (00:46→17:48)
[2019-04-30] MEDS: IBUPROFEN 800 MG TAB PO PRN ×2 (05:39→13:20)
[2019-04-30 08:10] LABS: Hematocrit 22.6 % (30.3-42.9); Hemoglobin 7.5 gm/dl (10.1-14.3)
[2019-04-30] MEDS: FERROUS SULFATE 325 MG TAB PO SCH (09:58)
--- NOTE | 2019-04-30 10:02 | Progress Note ---
Assessment and Plan - Patient Problems (1) S/P primary low transverse Current Visit: Yes Status: Acute Plan to address problem: Continue routine PP orders May d/c later today or in the AM F/U with office in 7 days Keep incision site clean and dry (2) Anemia due to blood loss, acute Current Visit: Yes Status: Acute Plan to address problem: Asymptomatic today Continue daily oral iron supplementation as directed Increase iron rich foods into diet Subjective - Subjective Date of service: 04/30/19 Principal diagnosis: POD 4; s/p Primary LTCS; Anemia Interval history: See admission H & P; OB operative note and PP progress notes Patient reports: appetite normal, voiding normally, pain well controlled (states is much better today after being changed to Percocet. States she feels much better today after receiving "iron injection"), flatus, ambulating normally, no bowel movement Dickens: doing well, bottle feeding Objective - Vital Signs Latest vital signs: Vital Signs Temp Pulse Resp BP Pulse Ox 04/30/19 00:01 98.2 F 92 H 20 124/80 99 04/29/19 16:22 98.2 F 95 H 18 135/81 99 Intake and Output 04/29/19 04/30/19 04/30/19 23:59 07:59 15:59 Intake Total 240 Balance 240 Intake: Oral 240 Other: Total, Intake Amount 240 # Voids Void 1 - Exam Breasts: Present: normal Cardiovascular: Present: Regular rate Lungs: Present: Normal air movement Abdomen: Present: soft, tenderness Uterus: Present: firm, fundal height below umbilicus (U-2) Extremities: Present: normal Deep Tendon Reflex Grade: Normal +2 Incision: Present: dry, intact (Healing as expected, no signs of infection noted) - Labs Labs: Abnormal lab results 04/30/19 Range/Units 07:49 Hgb 7.5 L (10.1-14.3) gm/dl Hct 22.6 L (30.3-42.9) %
--- NOTE | 2019-04-30 10:09 | Discharge Summary ---
Providers - Providers Date of Admission: 04/26/19 08:37 Date of discharge: 04/30/19 (1600) Attending physician: RAHUL LEVY MD Primary care physician: RAHUL LEVY MD Hospitalization Reason for admission: active labor Delivery: Procedure: primary low transverse (secondary to breech presentation) Episiotomy: none Laceration: none Incision: dry, intact (no signs of infection noted) complications: none Discharge diagnosis: other (S/P primary C/S; Anemia) baby: female Hospital course: See admission H & P; OB operative note and PP progress notes Condition at discharge: Stable Disposition: DC-01 TO HOME OR SELFCARE - Discharge Diagnoses (1) S/P primary low transverse Status: Acute (2) Anemia due to blood loss, acute Status: Acute Plan - Discharge Medications Prescriptions: Docusate Sodium [Colace CAP] 100 mg PO BID 30 Days #60 capsule Ferrous Sulfate [Feosol 325 MG tab] 325 mg PO BID 30 Days #60 tablet - Provider Discharge Summary Activity: routine, no sex for 6 weeks, no heavy lifting 4 weeks, no strenuous exercise Diet: other (Iron rich diet) Instructions: routine Additional instructions: [] Smoking cessation referral if applicable(refer to patient education folder for contact #) [] Refer to [facility]'s [facility] Booklet Call your doctor immediately for: * Fever > 100.5 * Heavy vaginal bleeding ( >1 pad per hour) * Severe persistent headache * Shortness of breath * Reddened, hot, painful area to leg or breast * Drainage or odor from incision. * Keep incision clean and dry at all times and follow doctor's instructions regarding bathing/showering - Follow up plan Follow up: RAHUL LEVY MD [Primary Care Provider] - 7 Days Forms: [facility] Discharge Summary
[2019-04-30] MEDS ORDERED: DOCUSATE SODIUM 100 MG CAP PO SCH (11:00)
[2019-04-30 16:55] VITALS: BP 145/80
[2019-04-30] MEDS ORDERED: medroxyPROGESTERone ACETATE 150 MG/ML SYRINGE IM ONE (17:36)
[2019-05-06 13:24] LABS: HIV-1 Antibody Differentiation SEE SCANNED RESULT; HIV-2 Antibody Differentiation SEE SCANNED RESULT
== END 2019-04-30 18:15 | disposition home or self-care (01) | DRG 765 ==
LOC: TRG 20:04 → LD 23:25 → OBSVTOIN 04-26 08:37 → OB 04-26 16:14
PROVIDERS: ADMIT Obstetrics & Gynecology; ATTEND Obstetrics & Gynecology
PROC: 10D00Z1 Extraction of Products of Conception, Low, Open Approach (ICD-10-PCS; principal; 2019-04-26)
DX: O32.1XX0 Maternal care for breech presentation, not applicable or unspecified (principal); D62 Acute posthemorrhagic anemia; Z3A.38 38 weeks gestation of pregnancy; Z37.0 Single live birth; Z88.1 Allergy status to other antibiotic agents; O90.81 Anemia of the puerperium
CPT/HCPCS: 36415; 59025; 76805; 76815; 80307; 81001; 85014; 85018; 85025; 86592; 86689; 86706; 86762; 86850; 86900; 86901; G0378; C1765; J0595; J1050; J1170; J1200; J1580; J1750; J1885; J2270; J2405; J2590; J2765; J3490; J7030; J7120

== ENCOUNTER 2019-07-04 05:55 | Day surgery (SDC) | payer MEDICAID ==
[2019-07-04] MEDS ORDERED: CELECOXIB 200 MG CAP PO NR (06:00)
[2019-07-04] MEDS ORDERED: SCOPOLAMINE TRANSDERMAL PATCH 72 HR TD NR (06:00)
[2019-07-04] MEDS ORDERED: MIDAZOLAM 2 MG/2 ML INJ IV NR (06:00)
[2019-07-04] MEDS ORDERED: GABAPENTIN 300 MG CAP PO NR (06:00)
[2019-07-04] MEDS ORDERED: LACTATED RINGERS 1,000 ML IV SCH (06:00)
[2019-07-04] MEDS ORDERED: BACTERIOSTATIC SODIUM CHLORIDE 0.9% 30 ML VIAL INFILTRATI ONE (06:28)
[2019-07-04] MEDS ORDERED: BUPIVACAINE/PF (0.5%) 5 MG/1 ML 30 ML VIAL INFILTRATI ONE ×2 (07:28→09:08)
--- NOTE | 2019-07-04 07:28 | Anesthesia Consultation ---
Anesthesia Consult and Med Hx Date of service: 07/04/19 - Airway Anesthetic Teeth Evaluation: Good ROM Head & Neck: Adequate Mental/Hyoid Distance: Adequate Mallampati Class: Class II Intubation Access Assessment: Good - Pulmonary Exam CTA: Yes - Cardiac Exam Cardiac Exam: No Murmur - Pre-Operative Health Status ASA Pre-Surgery Classification: ASA1 Proposed Anesthetic Plan: General - Pulmonary Hx Asthma: No COPD: No Hx Pneumonia: No - Cardiovascular System Hx Hypertension: Yes - Central Nervous System Hx Seizures: No Hx Psychiatric Problems: No - Endocrine Hx Renal Disease: No Hx End Stage Renal Disease: No Hx Hypothyroidism: No Hx Hyperthyroidism: No - Hematic Hx Anemia: Yes Hx Sickle Cell Disease: No - Other Systems Hx Alcohol Use: Yes (Occas) Hx Cancer: No
--- NOTE | 2019-07-04 07:29 | Anesthesia Day of Surgery ---
Anesthesia Day of Surgery - Day of Surgery Patient Examined: Yes Patient H&P Reviewed: Yes Patient is NPO: Yes
[2019-07-04] MEDS ORDERED: LIDOCAINE MPF (2%) 20 MG/1 ML VIAL 5 ML ONE (07:31)
[2019-07-04] MEDS ORDERED: ROCURONIUM 50 MG/5 ML INJ IV ONE (07:31)
[2019-07-04] MEDS ORDERED: fentaNYL 100 MCG/2 ML INJ ONE (07:32)
[2019-07-04] MEDS ORDERED: PROPOFOL 200 MG/20 ML VIAL IV ONE (07:32)
[2019-07-04] MEDS ORDERED: MIDAZOLAM 2 MG/2 ML INJ ONE (07:32)
[2019-07-04] MEDS ORDERED: HYDROmorphone 1 MG/1 ML INJ ONE (08:33)
[2019-07-04] MEDS ORDERED: METOCLOPRAMIDE 10 MG/2 ML INJ ONE (08:33)
[2019-07-04] MEDS ORDERED: ONDANSETRON 4 MG/2 ML INJ ONE (08:33)
[2019-07-04] MEDS ORDERED: dexAMETHasone 20 MG/5 ML VIAL ONE (08:33)
[2019-07-04] MEDS ORDERED: LACTATED RINGERS 1,000 ML ONE (09:05)
[2019-07-04] MEDS ORDERED: KETOROLAC 30 MG/1 ML INJ ONE (09:05)
[2019-07-04] MEDS ORDERED: SODIUM CHLORIDE 0.9% IRR 1,500 ML BOTTLE IR ONE (09:08)
[2019-07-04] MEDS ORDERED: GLYCOPYRROLATE 0.4 MG/2 ML INJ ONE (09:14)
[2019-07-04] MEDS ORDERED: NEOSTIGMINE 10MG/10 ML INJ MDV ONE (09:14)
--- NOTE | 2019-07-04 09:40 | Short Stay Summary ---
Short Stay Documentation Date of service: 07/04/19 Narrative H&P: PT here for Lap BTL for sterilization - History H&P: obtained from office - Allergies and Medications Current Medications: Allergies amoxicillin Allergy (Verified 07/01/19 12:32) Hives Home Medications Medication Instructions Recorded Confirmed Last Taken Type Acetaminophen/Codeine [Tylenol 1 tab PO Q4HR PRN #20 tablet 07/04/19 Unknown Rx /Codeine # 3 tab] Ibuprofen [Motrin 600 MG tab] 600 mg PO Q6H PRN #30 tablet 07/04/19 Unknown Rx Active Medications Celecoxib (Celebrex) 200 mg PO PREOP NR Stop: 07/04/19 16:00 Last Admin: 07/04/19 06:55 Dose: 200 mg Documented by: Gabapentin (Gabapentin) 600 mg PO PREOP NR Stop: 07/04/19 16:00 Last Admin: 07/04/19 06:55 Dose: 600 mg Documented by: Lactated Ringer's (Lactated Ringers) 1,000 mls @ 100 mls/hr IV DIRECT DEBBY Last Admin: 07/04/19 07:00 Dose: 100 mls/hr Documented by: Midazolam HCl (Versed) 2 mg IV PREOP NR Stop: 07/04/19 16:00 Last Admin: 07/04/19 08:06 Dose: 2 mg Documented by: Scopolamine (Transderm-Scop) 1 each TD PREOP NR Stop: 07/04/19 23:00 Last Admin: 07/04/19 06:35 Dose: 1 each Documented by: - Physical exam General appearance: no acute distress Lungs: Clear to auscultation Heart: Regular rate - Brief post op/procedure progress note Date of procedure: 07/04/19 Pre-op diagnosis: sterilization Post-op diagnosis: same Procedure: Lap BTL with Filschie clips. Patient taken to the operating room and prepped and draped in the usual fashion. Bimanual exam was done. Tate was placed as well as the acorn uterine manipulator with a single-tooth tenaculum on the anterior lip of the cervix. Attention was then turned abdominally where a 5 mm umbilical incision was made. Abdomen was tented up and the Veress needle placed in the abdominal cavity. Abdomen appropriately insufflated with CO2 gas. Veress needle removed and the 5 mm trocar was placed. Placement confirmed with the camera. Attention was then turned suprapubically where in the midline and 8 mm incision was placed in her prior scar. 8 mm trocar was placed in the abdominal cavity under direct visualization without difficulty. Attention was first turned to the left tube where the Filshie clip was applied. The clip encompassed the full width of the tube. Good hemostasis noted. This was then done in the exact same fashion on the right side with equal success. Good hemostasis noted throughout. Abdomen fully desufflated. Trochars were removed and the trocar sites reapproximated with 4-0 Monocryl in a subcuticular fashion followed by Marcaine. Uterine manipulator and Tate were removed and the procedure was concluded at this point. Urine was clear. Patient tolerated the procedure well. All instrument and lap counts were correct. Patient taken to the recovery room in stable condition. Anesthesia: GETA Findings: normal uterus (retroverted), tubes and ovaries. No significant scarring from csection. General abd survey WNL. Surgeon: LETY JUSTICE Estimated blood loss: minimal Pathology: none Condition: stable - Disposition Condition at discharge: Stable Disposition: DC-01 TO HOME OR SELFCARE Short Stay Discharge Plan Additional Instructions: MAKE APPOINTMENT TO SEE DR JUSTICE IN HIS OFFICE IN 2 WEEKS CALL HIS OFFICE IF YOU HAVE ANY QUESTIONS OR CONCERNS RELATED TO YOUR PROCEDURE. KEEP DRESSINGS CLEAN AND DRY. PRESCRIPTIONS GIVEN FOR PAIN TAKE DIRECTED. Follow up with: LETY JUSTICE MD [Staff Physician] - 14 Days Forms: Outpatient [facility] DC Inst. Prescriptions: Ibuprofen [Motrin 600 MG tab] 600 mg PO Q6H PRN #30 tablet PRN Reason: Pain Acetaminophen/Codeine [Tylenol /Codeine # 3 tab] 1 tab PO Q4HR PRN #20 tablet PRN Reason: Pain
[2019-07-04] MEDS ORDERED: ACETAMINOPHEN W/CODEINE 300-30 MG TAB PO PRN (09:46)
[2019-07-04] MEDS ORDERED: ACETAMINOPHEN W/CODEINE 300-30 MG TAB ONE (09:54)
[2019-07-04 10:41] VITALS: BP 132/80
== END 2019-07-04 05:56 | disposition home or self-care (01) ==
LOC: OR 05:55
PROVIDERS: ATTEND Obstetrics & Gynecology
DX: Z30.2 Encounter for sterilization (principal); I10 Essential (primary) hypertension; D72.829 Elevated white blood cell count, unspecified; Z79.899 Other long term (current) drug therapy; Z88.6 Allergy status to analgesic agent; Z72.89 Other problems related to lifestyle; Z98.890 Other specified postprocedural states; Z80.8 Family history of malignant neoplasm of other organs or systems; Z83.3 Family history of diabetes mellitus; Z82.49 Family history of ischemic heart disease and other diseases of the circulatory system
CPT/HCPCS: 58671; 81025; J1100; J1170; J1885; J2250; J2405; J2704; J2710; J2765; J3010; J7120